=== PATIENT | male | born 1985 | race Caucasian/White ===

== ENCOUNTER 2017-12-01 15:42 | Emergency (ER) | payer OTHER ==
[2017-12-01] MEDS ORDERED: HYDROCODONE/ACETAMINOPHEN 5-325 MG TABLET PO ONE (16:44)
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
[2017-12-01 18:35] VITALS: BP 137/81
== END 2017-12-01 18:35 | disposition home or self-care (01) ==
LOC: ER 15:42
DX: M79.662 Pain in left lower leg (principal); V89.2XXA Person injured in unspecified motor-vehicle accident, traffic, initial encounter
CPT/HCPCS: 99284; 73590; L1830